=== PATIENT | male | born 1955 | race Caucasian/White ===

== ENCOUNTER 2021-10-11 07:58 | Emergency (ER) | payer BC, MEDICAID ==
[~2021-10-11] VITALS: Ht 185.4 cm; Wt 90.0 kg
[2021-10-11 09:02] LABS: BASOPHILS % (AUTO) 0.6 % (0-1); EOSINOPHILS # (AUTO) 0.2 X10'3 (0-0.9); EOSINOPHILS % (AUTO) 3.4 % (0-6); HEMATOCRIT 43.9 % (42.0-52.0); HEMOGLOBIN 14.7 g/dl (14.0-17.9); LYMPHOCYTES # (AUTO) 1.3 X10'3 (1.1-4.8); LYMPHOCYTES % (AUTO) 19.9 % (21-51); MEAN CORPUSCULAR HEMOGLOBIN 28.9 PG (27.0-31.0); MEAN CORPUSCULAR HGB CONC 33.5 g/dL (33.0-36.5); MEAN CORPUSCULAR VOLUME 86.4 FL (78-98); MEAN PLATELET VOLUME 7.9 FL (7.4-10.4); MONOCYTES # (AUTO) 0.5 X10'3 (0-0.9); NEUTROPHILS # (AUTO) 4.5 X10'3 (1.8-7.7); NEUTROPHILS % (AUTO) 69.1 % (42-75); PLATELET COUNT 154 X10'3 (140-440); RED BLOOD COUNT 5.08 X10'6 (4.70-6.10); RED CELL DISTRIBUTION WIDTH 14.7 % (11.5-14.5); WHITE BLOOD COUNT 6.6 X10'3 (4.5-11.0)
[2021-10-11 09:25] LABS: ALANINE AMINOTRANSFERASE 86 U/L (12-78); ALBUMIN 3.9 G/DL (3.4-5.0); ALKALINE PHOSPHATASE 52 IU/L (46-116); ANION GAP 9 (8-16); ASPARTATE AMINO TRANSFERASE 73 U/L (10-37); BILIRUBIN,TOTAL 0.4 MG/DL (0.1-1.0); BLOOD UREA NITROGEN 16 MG/DL (7-18); BUN/CREATININE RATIO 15.5 (5.4-32.0); CALCIUM 8.5 MG/DL (8.5-10.1); CHLORIDE 104 MMOL/L (99-107); CREATININE 1.03 MG/DL (0.60-1.10); GLUCOSE 106 MG/DL (70-104); POTASSIUM 4.1 MMOL/L (3.5-5.1); SODIUM 140 MMOL/L (135-145); TOTAL CARBON DIOXIDE 27.2 MMOL/L (24-32); TOTAL PROTEIN 7.7 G/DL (6.4-8.2); eGFR 72 ML/MIN
--- NOTE | 2021-10-11 11:59 | NUR ---
Pt stated that he was stung by 3 hornets 3 wks ago. C/O persistant generalized edema. Denies sob.
[2021-10-11 12:36] VITALS: BP 149/95
--- NOTE | 2021-10-11 12:50 | NUR ---
Pt given and understands d/c instructions. IV d/c'd, catherter was intact. Ambulatory with a steady gait.
== END 2021-10-11 12:50 | disposition home or self-care (01) ==
LOC: ER 07:58
DX: R06.00 Dyspnea, unspecified (principal); G47.30 Sleep apnea, unspecified
CPT/HCPCS: 36415; 71045; 80053; 83880; 84484; 85025; 93005; 99285

== ENCOUNTER 2024-07-05 12:46 | Inpatient (IN) | payer BC, MEDICAID ==
[~2024-07-05] VITALS: Ht 177.8 cm; Wt 133.0 kg
--- NOTE | 2024-07-05 12:54 | ELECTROCARDIOGRAPH REPORT ---
[facility] Test Date: 2024-07-05 Test Time: 12:49:26 Pat Name: BRETT GARCIA Department: EMERGENCY ROOM Room: Gender: M Assistant Manager Bilingual: : 1955 Requested By: DEPARTMENT EMERGENCY Order Number: [id number] Reading MD: Measurements Intervals [place] Rate: 101 P: 0 [place]: 198 QRS: -15 QRSD: 82 T: 9 QT: 338 QTc: 439 Interpretive Statements Sinus tachycardia Paired ventricular premature complexes Aberrant conduction of SV complex(es) Borderline left axis deviation Low voltage, precordial leads Probable anteroseptal infarct, old Minimal ST depression Baseline wander in lead(s) III,aVF,V1,V3,V5,V6 Please click the below link to view image of tracing.
[2024-07-05 13:12] LABS: BASOPHILS # (AUTO) 0.1 X10'3 (0-0.2); BASOPHILS % (AUTO) 0.8 % (0-1); EOSINOPHILS # (AUTO) 0.2 X10'3 (0-0.9); EOSINOPHILS % (AUTO) 2.1 % (0-6); HEMATOCRIT 48.7 % (42.0-52.0); HEMOGLOBIN 16.2 g/dl (14.0-17.9); LYMPHOCYTES % (AUTO) 24.4 % (21-51); MEAN CORPUSCULAR HEMOGLOBIN 28.1 PG (27.0-31.0); MEAN CORPUSCULAR HGB CONC 33.4 g/dL (33.0-36.5); MEAN CORPUSCULAR VOLUME 84.1 FL (78-98); MEAN PLATELET VOLUME 8.2 FL (7.4-10.4); MONOCYTES # (AUTO) 0.7 X10'3 (0-0.9); MONOCYTES % (AUTO) 8.5 % (2-12); NEUTROPHILS # (AUTO) 5.3 X10'3 (1.8-7.7); NEUTROPHILS % (AUTO) 64.2 % (42-75); PLATELET COUNT 225 X10'3 (140-440); RED BLOOD COUNT 5.79 X10'6 (4.70-6.10); RED CELL DISTRIBUTION WIDTH 13.1 % (11.5-14.5); WHITE BLOOD COUNT 8.2 X10'3 (4.5-11.0)
--- NOTE | 2024-07-05 13:12 | Physician Documentation ---
History of Present Illness ~ Chief Complaint: Chest Pain Stated Complaint: CHEST PAIN Time Seen by MD: 12:55 HPI 69-year-old male presents to the ED with four days of increasing right-sided abdominal and epigastric pain. He has any exacerbating or alleviating factors. Does report increased shortness of breath however the pain has radiated from midepigastric to the right side and into his right ribs. Denies any increased pain after eating. Reports he does have a history of constipation and has been a taking apple cider vinegar which he believes this caused him to have some diarrhea. He has any nausea. States he may have had a mini stroke secondary to a clogged artery, but isn't sure. Day of Onset: July 05, 2024 Medication Reconciliation Allergies: Coded Allergies: No Known Allergies (Unverified , 07/05/24) Past Medical History Past Medical History: No Pertinent History Past Surgical History: no surgical history Alcohol Use: None Drug Use: none Lives In: Home Review of Systems All Other Systems at this time: Reviewed and Negative ROS The note accurately reflects work and decisions made by me.Salvador Butterfield - REMELT OPERATOR 07/05/24 15:57 Physical Exam Vital Signs: Temperature: 98.0, Source: Temporal, Heart Rate: 90, Respiratory Rate: 18, BP: 156/96, Pulse Oximetry: 97, Weight: 132.980 Physical Exam General: Alert, guarded Respiratory: Lungs clear, no respiratory distress. Cardiovascular: Regular rate and rhythm, no murmurs. Gastrointestinal: Distended tender to the right upper quadrant and midepigastric tenderness Extremities: Normal range of motion, no deformity. Neurologic: Oriented x4. Psychiatric: Normal mood and affect. Skin: Normal color, warm and dry. No edema, no ecchymosis. Progress Results/Orders Results/Orders Orders - SALVADOR BUTTERFIELD NP Chest,Single View (07/05/24 13:00) Monitor (07/05/24 13:00) Saline Lock (07/05/24 13:00) Oxygen (07/05/24 13:00) Hs Troponin I W Calculations (07/05/24 16:00) Ct Abdomen Pelvis (07/05/24 13:50) Ultrasound Of Abdomen (07/05/24 15:31) Page Hospitalist (07/05/24 ) Completed Orders - GREER,SALVADOR H REMELT OPERATOR Chest,Single View (07/05/24 13:00) Cbc/Diff (07/05/24 13:00) PBNP (07/05/24 13:00) CMP (07/05/24 13:00) Hs Troponin I W Calculations (07/05/24 13:00) Hs Troponin I W Calculations (07/05/24 15:00) Ct Abdomen Pelvis (07/05/24 13:50) Ultrasound Of Abdomen (07/05/24 15:31) Morphine 4mg/Ml Inj. (Morphine Inj.) (07/05/24 15:35) Ondansetron Inj. (Zofran 4mg/2ml Vial) (07/05/24 15:35) Normal Saline 1000ml (Sodium Chloride 10 (07/05/24 15:35) Medications Received in ER Medications (Trade) Dose Ordered Sig/Edna Route PRN Reason Start Time Stop Time Status Last Admin Dose Admin (morphine inj.) 4 mg ONCE ONCE IV 07/05/24 15:35 07/05/24 15:36 DC 07/05/24 15:41 4 MG (Zofran 4mg/2ml vial) 4 mg ONCE ONCE IV 07/05/24 15:35 07/05/24 15:36 DC 07/05/24 15:41 4 MG (sodium chloride 1000ml IV soln) 1,000 ml ONCE ONCE IVB 07/05/24 15:35 07/05/24 15:36 DC 07/05/24 15:41 1,000 ML Vital Signs 07/05/24 07/05/24 07/05/24 07/05/24 12:58 13:07 13:16 13:18 Temp 98.0 Pulse 90 77 Resp 18 16 16 B/P (MAP) 156/96 116/90 (99) Pulse Ox 97 97 96 O2 Delivery Room Air* O2 Flow Rate 0 0 FiO2 N/A 07/05/24 07/05/24 07/05/24 07/05/24 13:59 15:30 15:41 15:50 Pulse 83 75 Resp 16 18 18 16 B/P (MAP) 124/88 (100) 135/90 (105) Pulse Ox 98 96 O2 Flow Rate 0 0 Laboratory Tests Test 07/05/24 12:54 07/05/24 14:58 White Blood Count 8.2 Red Blood Count 5.79 Hemoglobin 16.2 Hematocrit 48.7 Mean Corpuscular Volume 84.1 Mean Corpuscular Hemoglobin 28.1 Mean Corpuscular Hemoglobin Concent 33.4 Red Cell Distribution Width 13.1 Platelet Count 225 Mean Platelet Volume 8.2 Neutrophils (%) (Auto) 64.2 Lymphocytes (%) (Auto) 24.4 Monocytes (%) (Auto) 8.5 Eosinophils (%) (Auto) 2.1 Basophils (%) (Auto) 0.8 Neutrophils # (Auto) 5.3 Lymphocytes # (Auto) 2.0 Monocytes # (Auto) 0.7 Eosinophils # (Auto) 0.2 Basophils # (Auto) 0.1 CBC Comment Sodium Level 138 Potassium Level 4.1 Chloride Level 102 Carbon Dioxide Level 23.2 L Anion Gap 13 Blood Urea Nitrogen 15 Creatinine 0.94 Estimated GFR/1.73 m2 80 BUN/Creatinine Ratio 16.0 Glucose Level 113 H Calcium Level 9.3 Total Bilirubin 0.5 Aspartate Amino Transf (AST/SGOT) 44 H Alanine Aminotransferase (ALT/SGPT) 63 Alkaline Phosphatase 67 Troponin I High Sensitivity 8 7 Pro-B-Type Natriuretic Peptide < 30 Total Protein 8.0 Albumin 4.2 Globulin 3.8 Albumin/Globulin Ratio 1.1 Chemistry Comments Troponin I High Sens Percent Delta 12 Troponin I Hi Sens Absolute Change -1 Medical Decision Making Findings 69-year-old male presents with intractable pain which has gone unexplained throughout my diagnostic process. T came back negative however his ultrasound said that he does have a fatty liver which is not surprising based on his body habitus. Ultrasound indicated that his gallbladder was so contracted that they could not fully evaluated if there was a stone that could be causing his symptoms At this stage I can not explain the cause of his symptoms going to request hospitalist evaluation and pain management Differential Dx:Considerations: Include: angina, aortic dissection, chest wall pain, cholelithiasis, CHF, costochondritis, esophageal reflux/spasm, gastritis, herpes zoster, myocardial infarction, pericarditis, pleuritis, pancreatitis, pneumonia, pneumothorax, pulmonary embolus, other Departure Disposition: ADMITTED INPATIENT Impression: Primary Impression: Intractable abdominal pain Condition: Stable Referrals: NO PRIMARY CARE PROVIDER (PCP) Signature Scribe Signature: nate Attestation: The note accurately reflects work and decisions made by me.Salvador Valles NP 07/05/24 16:04 SALVADOR BUTTERFIELD NP July 05, 2024 13:12
[2024-07-05 13:21] LABS: ALANINE AMINOTRANSFERASE 63 U/L (12-78); ALBUMIN 4.2 G/DL (3.4-5.0); ALBUMIN/GLOBULIN RATIO 1.1 (1.1-1.5); ALKALINE PHOSPHATASE 67 IU/L (46-116); ANION GAP 13 (8-16); ASPARTATE AMINO TRANSFERASE 44 U/L (10-37); BILIRUBIN,TOTAL 0.5 MG/DL (0.1-1.0); BLOOD UREA NITROGEN 15 MG/DL (7-18); CALCIUM 9.3 MG/DL (8.5-10.1); CHLORIDE 102 MMOL/L (99-107); CREATININE 0.94 MG/DL (0.60-1.10); GLUCOSE 113 MG/DL (70-104); POTASSIUM 4.1 MMOL/L (3.5-5.1); SODIUM 138 MMOL/L (135-145); TOTAL CARBON DIOXIDE 23.2 MMOL/L (24-32); eCRCL 78 ML/MIN; eGFR 80 ML/MIN
[2024-07-05 13:27] LABS: PRO BRAIN NATRIURETIC PEPTIDE < 30 PG/ML (0-125)
--- NOTE | 2024-07-05 13:38 | RADIOLOGY REPORT ---
CHEST RADIOGRAPH Indication: CP Technique: Single frontal view of the chest was obtained COMPARISON: None FINDINGS: Lines and Tubes: None Lungs: Clear Pleura: No effusion. No pneumothorax. Cardiomediastinal contours: Unremarkable Bones: Unremarkable IMPRESSION: No acute disease.
--- NOTE | 2024-07-05 15:11 | RADIOLOGY REPORT ---
Exam: CT CT ABDOMEN PELVIS History: abd pain Comparison Study: None Technique: Multidetector spiral CT of the abdomen and pelvis was performed from lung bases to pubic symphysis. Imaging was performed without IV contrast. Axial, coronal and sagittal multiplanar reform ats were obtained from the axial data set by the technologist. Radiation dose : Abdomen/Pelvis: CTDIvol 36 mGy, DLP 1944 mGy*cm. Findings: Evaluation of solid organs is limited due to lack of intravenous contrast use. Lung Bases: No acute or significant lung base finding. Normal heart size. No pleural or pericardial effusion. Liver: The liver is normal in size. No focal lesions. Gallbladder and biliary Tree: Contracted Spleen: Unremarkable Pancreas: The pancreas is grossly normal in appearance. Adrenal Glands: Unremarkable Kidneys: Kidneys are grossly normal without calculi or hydronephrosis. Bladder: Grossly unremarkable for degree of distention. Bowel: The stomach is grossly normal in appearance. Small bowel and colon are normal in caliber and d istribution. Normal appendix is visualized in the right lower quadrant without findings of appendicit is. Ascites: Absent Lymphadenopathy: No mesenteric, retroperitoneal or periportal lymphadenopathy. Abdominal wall and Mesentery: Fat containing umbilical hernia. Vasculature: Calcified atherosclerotic disease. Pelvic Organs: Unremarkable Musculoskeletal: Grade 1 spondylolisthesis of L5 on S1. IMPRESSION: 1. No acute abdominal or pelvic findings. Fat containing umbilical hernia. Grade 1 spondylolisthesis of L5 on S1. Radiation optimization: All CT scans at this facility use at least one of these dose optimization alicia hniques: Automated exposure control mA and/or kV adjustment per patient size (includes targeted exams where dose is matched to clinical indication) or iterative reconstruction. HS:Y
[2024-07-05] MEDS: ondansetron/PF 4mg/2ml inj IV ONE (15:41)
[2024-07-05] MEDS: normal saline 1000ML IV soln IVB ONE (15:41)
[2024-07-05] MEDS: morphine 4 MG/ML inj SYRINge IV ONE (15:41)
--- NOTE | 2024-07-05 16:24 | RADIOLOGY REPORT ---
EXAM: US Abdomen Limited, Right Upper Quadrant CLINICAL INDICATION: GALL BLADDER TECHNIQUE: Real-time ultrasound of the right upper quadrant with image documentation. COMPARISON: None FINDINGS: LIVER: Fatty infiltration of the liver. Liver measures up to 21.2 cm. No intrahepatic bile duct d ilation. GALLBLADDER: Gallbladder is contracted. No gallstones. COMMON BILE DUCT: Unremarkable as visualized. No stones. No dilation. Common bile duct measures 0.44 cm in diameter. PANCREAS: Unremarkable as visualized. RIGHT KIDNEY: Unremarkable. No stones. No hydronephrosis. The right kidney measures 11.8 x 5.3 x 6.4 cm. OTHER FINDINGS: . . IMPRESSION: Fatty infiltration of the liver.
[2024-07-05] MEDS ORDERED: magnesium sulf-water 2g/50mL 50 ML IV PRN (16:45)
[2024-07-05] MEDS ORDERED: magnesium sulf-water 4G/100mL 100 ML IV PRN (16:45)
[2024-07-05] MEDS ORDERED: potassium Cl 20 mEq SR tablet PO PRN ×2 (16:45)
[2024-07-05] MEDS ORDERED: acetaminophen 325mg tablet PO PRN ×2 (16:45→22:15)
[2024-07-05] MEDS ORDERED: aminophylline 250mg/10ml inj. IV PRN (16:45)
[2024-07-05] MEDS ORDERED: morphine 2 MG/ML inj. syringe IV PRN ×2 (16:45)
[2024-07-05] MEDS ORDERED: metoprolol tartrate 1mg/ml inj IV PRN (16:45)
[2024-07-05] MEDS ORDERED: regadenoson 0.4mg/5ml syringe IV PRN (16:45)
[2024-07-05] MEDS ORDERED: potassium Cl 40MEQ/1/2NS 520ml 520 ML IV PRN (16:45)
[2024-07-05] MEDS ORDERED: ondansetron/PF 4mg/2ml inj IV PRN (16:45)
[2024-07-05] MEDS ORDERED: nitroGLYCERIN 0.4mg SUBLingual tab SL PRN (16:45)
[2024-07-05] MEDS ORDERED: magnesium Cl slow-release 64mg tablet PO PRN (16:45)
[2024-07-05 17:06] LABS: ETHANOL < 10 MG/DL (<10)
[2024-07-05] MEDS: NORMAL SALINE IV ONE (17:10)
[2024-07-05] MEDS: SINCALIDE IV ONE (17:10)
--- NOTE | 2024-07-05 17:28 | HISTORY AND PHYSICAL-Residence ---
History & Physical Providers to CC Resident Creating Document: CHRIS JOHN RES ~ History of Present Illness Primary Medical Doctor: Dr Susan Soto; [facility] Reason for Admit\Complaint: Abdominal pain History of Present Illness 69-year-old male patient presents to the hospital with complaints of increasing right upper quadrant abdominal pain. He reports that his symptoms began about five days ago, for the 1st three days, the pain was intermittent and then progress towards being continuous. Pain was sudden in onset, stabbing in nature and aggravated with coughing. The cough was also new and begun with a RUQ pain. No pain aggravation on deep breath. Does not associate the pain with diet. No other known aggravating or relieving factors. Allergies: Coded Allergies: No Known Allergies (Unverified , 07/05/24) Past Medical History Past Medical History Hypertension, hypothyroidism Past Surgical History Surgical History Comment Bilateral carotid artery endarterectomy Past Social History Social History Comment Denies any alcohol use, smoking or other illicit drug abuse except for cannabis. Alcohol Use: None Drug Use: None Lives In: Home ROS ROS As stated above in the HPI, otherwise all systems are reviewed and negative. Exam Vitals: Vital Signs Date Time Temp Pulse Resp B/P (MAP) Pulse Ox O2 Delivery O2 Flow Rate FiO2 07/05/24 16:49 71 18 114/83 (93) 99 0 07/05/24 13:07 Room Air* N/A 07/05/24 12:58 98.0 General: General: Awake and Alert, no acute distress. HEENT: Conjunctiva pink, Sclera clear, Mucus Membranes moist. Neck: Increased neck size. Resp: Unlabored. Lungs clear to auscultation bilaterally. Heart: Regular Rate and rhythm, normal S1 and S2 without murmur, rub or gallop. Abdomen: Obese, tenderness over the right upper quadrant. Bowel sounds present. CLINICAL ACCOUNT EXECUTIVE: Conscious, coherent, oriented x4. No cranial nerve deficits. No motor or sensory deficits. Extremities: No cyanosis,clubbing or edema. Skin: Warm and Dry. Rosacea of the face Diagnostic Data Last Recorded Lab Results: 07/05/24 1254 07/05/24 1254 Advance Care Planning Advanced Care plannin - 30 Minutes Additional Plan 1. Acute RUQ pain: Ultrasound abdomen reveals contracted gallbladder, normal CBD diameter Last meal at 6:30 a.m. today morning, hence not post meal contraction. Contraction likely secondary to a passed biliary stone or chronic inflammation Follow HIDA scan in a.m.. Protonix 40 mg daily, NPO now Surgery to evaluate the patient today, appreciate recommendations Pain control with morphine 2. New onset non-expectoration cough Likely secondary to the diaphragmatic stimulation Other causes of new onset cough including troponins, proBNP normal Chest x-ray reviewed- mild patchy opacity in the right basilar lobe which appears has a dome in his new when compared with the prior chest x-rays We will review repeat chest x-ray after a HIDA scan tomorrow 3. Morbid obesity: Possible sleep apnea Hypertension Follow lipid panel and hemoglobin A1c Restart home medications of amlodipine and lisinopril after reconciliation Outpatient sleep study 4. Hypothyroidism: Restart home medications Follows up with his PCP every three months 6. Bilateral carotid endarterectomy Follow lipid panel and A1c Lines: PIV Diet: NPO Code status: Full code GI prophylaxis: Protonix DVT prophylaxis: Heparin Chris John PGY2, Internal medicine resident Date of Service: July 05, 2024 Billing Provider: JOSE ANTONIO WINKLER MD Common Visit Codes: [id number] INP/OBS CARE (HIGH) Secondary Visit Codes: [id number] CARE PLAN 30 MINUTES CHRIS JOHN, RES July 05, 2024 17:28 JOSE ANTONIO WINKLER MD July 05, 2024 17:57
[2024-07-05] MEDS: normal saline 1000ml 1,000 ML IV SCH (17:53)
[2024-07-05 17:54] LABS: CHOL/HDL RATIO 4.7 (0.00-4.99); CHOLESTEROL 192 MG/DL (0-200); HDL CHOLESTEROL 41 MG/DL (35-60); LDL CHOLESTEROL 118 MG/DL (50-100); TRIGLYCERIDES 258 MG/DL (20-135)
[2024-07-05 18:20] LABS: HEMOGLOBIN A1C 5.8 % (4.5-6.2)
[2024-07-05 18:45] VITALS: BP 123/71; PULSE 78; RESP 20; TEMP 98.7; O2SAT 95
[2024-07-05 20:00] VITALS: RESP 20; O2SAT 95
[2024-07-05] MEDS: CefTRIAXone/D5W-Rocephin 1gm 50 ML IV ONE (20:52)
[2024-07-05] MEDS: heparin, porcine 5000 units/ml vial SQ SCH (20:54)
[2024-07-05 22:00] VITALS: BP 102/60; PULSE 80; RESP 20; TEMP 98.2; O2SAT 100
[2024-07-05] MEDS: temazepam 15mg capsule PO PRN (22:33)
[2024-07-05] MEDS: acetaminophen 325mg tablet PO PRN (22:33)
[2024-07-05] MEDS ORDERED: LISI20TA28 PO (23:38)
[2024-07-05] MEDS ORDERED: SYN0.088T PO (23:38)
[2024-07-05] MEDS ORDERED: AMLO5TAB16 PO (23:47)
[2024-07-05] MEDS ORDERED: ATOR-2 PO (23:47)
[2024-07-06] VITALS (8 sets, daily range): BP systolic 101–157; BP diastolic 56–95; PULSE 53–124; RESP 14–22; TEMP 97.1–98.4; O2SAT 92–100
[2024-07-06 05:01] LABS: BASOPHILS % (AUTO) 0.8 % (0-1); EOSINOPHILS # (AUTO) 0.2 X10'3 (0-0.9); EOSINOPHILS % (AUTO) 2.7 % (0-6); HEMATOCRIT 41.7 % (42.0-52.0); HEMOGLOBIN 13.9 g/dl (14.0-17.9); LYMPHOCYTES # (AUTO) 1.7 X10'3 (1.1-4.8); LYMPHOCYTES % (AUTO) 27.1 % (21-51); MEAN CORPUSCULAR HEMOGLOBIN 28.1 PG (27.0-31.0); MEAN CORPUSCULAR HGB CONC 33.3 g/dL (33.0-36.5); MEAN CORPUSCULAR VOLUME 84.5 FL (78-98); MEAN PLATELET VOLUME 7.9 FL (7.4-10.4); MONOCYTES # (AUTO) 0.6 X10'3 (0-0.9); NEUTROPHILS # (AUTO) 3.6 X10'3 (1.8-7.7); NEUTROPHILS % (AUTO) 59.4 % (42-75); PLATELET COUNT 171 X10'3 (140-440); RED BLOOD COUNT 4.94 X10'6 (4.70-6.10); RED CELL DISTRIBUTION WIDTH 13.4 % (11.5-14.5); WHITE BLOOD COUNT 6.1 X10'3 (4.5-11.0)
[2024-07-06 05:13] LABS: ALANINE AMINOTRANSFERASE 149 U/L (12-78); ALBUMIN 3.3 G/DL (3.4-5.0); ALBUMIN/GLOBULIN RATIO 1.2 (1.1-1.5); ALKALINE PHOSPHATASE 77 IU/L (46-116); ANION GAP 5 (8-16); ASPARTATE AMINO TRANSFERASE 99 U/L (10-37); BILIRUBIN,TOTAL 0.5 MG/DL (0.1-1.0); BLOOD UREA NITROGEN 17 MG/DL (7-18); BUN/CREATININE RATIO 16.5 (10.0-20.0); CALCIUM 8.9 MG/DL (8.5-10.1); CHLORIDE 105 MMOL/L (99-107); CREATININE 1.03 MG/DL (0.60-1.10); GLUCOSE 96 MG/DL (70-104); POTASSIUM 4.4 MMOL/L (3.5-5.1); SODIUM 139 MMOL/L (135-145); TOTAL PROTEIN 6.1 G/DL (6.4-8.2); eCRCL 71 ML/MIN; eGFR 72 ML/MIN
[2024-07-06 05:31] LABS: URINE AMPHETAMINE SCREEN NEGATIVE (Neg); URINE BARBITUATE SCREEN NEGATIVE (Neg); URINE BENZODIAZEPINES SCREEN NEGATIVE (Neg); URINE CANNABINOID SCREEN POSITIVE (Neg); URINE COCAINE SCREEN NEGATIVE (Neg); URINE METHADONE SCREEN NEGATIVE (Neg); URINE OPIATE SCREEN POSITIVE (Neg); URINE PHENCYCLIDINE SCREEN NEGATIVE (Neg)
[2024-07-06] MEDS: pantoprazole 40 MG vial IV SCH (11:06)
--- NOTE | 2024-07-06 13:03 | RADIOLOGY REPORT ---
Procedure: NM NM HIDA SCAN Exam Date: 07/06/2024 08:38 AM Clinical History: aBDOMINAL PAIN Comparison Study: None Technique: Following the intravenous administration of 5 mCi of technetium 99m labeled Choletec multi ple planar abdominal planar images were obtained in anterior projection in 1 minute intervals for 60 minutes . Right lateral images were obtained at 60 minutes after injection. Findings: The liver appears grossly normal in size. There is no abnormal persistence of the cardiac or blood po ol activity. Radiotracer can be seen in the small bowel at 24 minutes. Gallbladder is not seen withi n the 1st hour of the exam. Impression: 1. Findings compatible cystic duct obstruction / acute cholecystitis. 2. The CBD is patent.
--- NOTE | 2024-07-06 13:26 | PROGRESS NOTE- Residence ---
Progress Note - Resident Providers to CC Resident Creating Document: CHRIS AGUSTIN RES ~ Central Line/PICC still needed: No Garrett-Non Protocol Garrett Indications Met/Not Met: F/C Indications Not Met Antibiotic Timeout Antibiotic Ordered?: No Subjective Patient Bactrim HIDA scan when we went into same. He reports no acute distress an improvement in the pain when compared to yesterday. Objective Vital Signs Date Time Temp Pulse Resp B/P (MAP) Pulse Ox O2 Delivery O2 Flow Rate FiO2 07/06/24 10:00 97.8 74 16 130/77 (94) 97 Room Air 07/06/24 00:08 0 21 Result Diagram: 07/06/240 07/06/240 General: Awake and Alert, no acute distress. HEENT: Conjunctiva pink, Sclera clear, Mucus Membranes moist. Resp: Unlabored. Lungs clear to auscultation bilaterally. Heart: Regular Rate and rhythm, normal S1 and S2 without murmur, rub or gallop. Abdomen: Soft, mild tenderness in the right upper quadrant. Bowel sounds present Extremities: No cyanosis,clubbing or edema. Skin: Warm and Dry. Assessment Assessment 69-year-old male patient with a past medical history of hypertension, hypothyroidism and hyperlipidemia presents to the hospital with complaints of right upper quadrant pain. Evaluation further revealed acute cholecystitis secondary to cystic duct obstruction. He has being managed by surgical intervention. Plan Plan 1. Acute cholecystitis: Ultrasound abdomen reveals contracted gallbladder, normal CBD diameter Last meal at 6:30 a.m. today morning, hence not post meal contraction. Contraction likely secondary to a passed biliary stone or chronic inflammation Follow HIDA scan in a.m.. Protonix 40 mg daily, NPO now Surgery to evaluate the patient today, appreciate recommendations Pain control with morphine 07/06/24: HIDA scan positive for acute cholecystitis Dr. Dumont reconsulted, will evaluate the patient today NPO until further clearance by surgery 2. New onset non-expectoration cough Likely secondary to the diaphragmatic stimulation Other causes of new onset cough including troponins, proBNP normal Chest x-ray reviewed- mild patchy opacity in the right basilar lobe which appears has a dome in his new when compared with the prior chest x-rays We will review repeat chest x-ray after a HIDA scan tomorrow 07/06/24: Interval improvement in the cough 3. Morbid obesity: Possible sleep apnea Hypertension Dyslipidemia Hypertriglyceridemia and hypercholesterolemia. A1c 5.8 Restarted home medications of amlodipine and lisinopril after reconciliation Outpatient sleep study 4. Hypothyroidism: Levothyroxine 88 mcg Follows up with his PCP every three months 6. Bilateral carotid endarterectomy Likely secondary to morbid obesity, type 2 DM and dyslipidemia Lines: PIV Diet: NPO Code status: Full code GI prophylaxis: Protonix DVT prophylaxis: Heparin Chris Agustin PGY2, Internal medicine resident Date of Service: July 06, 2024 Billing Provider: JOSE ANTONIO WINKLER MD Common Visit Codes: [id number] INP/OBS CARE(HIGH) CHRIS AGUSTIN, MAZIN July 06, 2024 13:26 JOSE ANTONIO WINKLER MD July 06, 2024 17:14
[2024-07-06] MEDS: lisinopril 20mg tablet PO SCH (15:55)
[2024-07-06] MEDS: amLODIPine 5mg tablet PO SCH (15:55)
--- NOTE | 2024-07-06 17:02 | PROGRESS NOTE ---
Progress Note Dictate Providers to CC CC: EMMETT ARDON MD ~ Progress Note: Patient admitted with upper and right upper quadrant abdominal pain of unclear etiology CT scan showed contracted gallbladder Known cholelithiasis from prior history HIDA scan today positive for cystic duct obstruction with nonvisualized gallbladder consistent with the acute calculous cholecystitis Patient non toxic appearing Had dinner last night with no worsening of abdominal pain Currently, case would go very late tonight or early tomorrow morning. Patient is okay being provided a diet and plan for cholecystectomy tomorrow The risks, benefits, and alternatives to a robotic assisted, laparoscopic possible open cholecystectomy were discussed with the patient. Risks include, but are not limited to, bleeding, infection, injury to intra-abdominal structures, injury to the biliary tree, postoperative bile leak and retained common bile duct stone. Patient verbalized understanding. We will plan for surgery tomorrow afternoon following the urologist (two prostatectomy cases). Antibiotic Ordered?: Yes Objective Vitals Vital Signs Date Time Temp Pulse Resp B/P (MAP) Pulse Ox O2 Delivery O2 Flow Rate FiO2 07/06/24 15:55 124 07/06/24 14:49 157/95 (115) 07/06/24 10:00 97.8 16 97 Room Air 07/06/24 00:08 0 21 Lab Results: 07/06/24 0440 07/06/24 0440 EMMETT ARDON MD July 06, 2024 17:02
[2024-07-06] MEDS: CITALOpram 10mg tablet PO SCH (17:29)
--- NOTE | 2024-07-06 19:56 | CARDIOLOGY REPORT ---
APPROVED REPORT EXAM: Comprehensive 2D, Doppler, and color-flow Echocardiogram. Patient Location: [facility] Heart Rate: 70 bpm Rhythm: SINUS Indications CHEST PAIN BILATERAL CAROTID ENDARTERECTOMY French Professor: Stan Leon MD Previous echo: NONE 2D Dimensions RVDd 3.9 cm IVSd 1.0 (0.7-1.1cm) LVDd 5.1 cm PWd 1.2 (0.7-1.1cm) LVOT Diameter 2.15 (1.8-2.4cm) M-Mode Dimensions Left Atrium(MM) 4.78 (2.5-4.0cm) Aortic Root 3.90 (2.2-3.7cm) Aortic Valve AoV Peak Regan. 163.9 cm/s AoV VTI 31.1 cm AO Peak GR. 10.7 mmHg AO Mean GR. 6 mmHg LVOT VTI 25.58 cm LVOT Peak Regan. 122.9 cm/s NICKO(VTI)/BSA 2.99 cm2/m2 NICKO (VTI) 2.99 cm2 Mitral Valve MV E Velocity 89.2 cm/s MV Peak Gr. 3 mmHg MV A Velocity 98.8 cm/s MV PHT 64 ms E/A Ratio 0.9 MVA (PHT) 3.44 cm2 MV VMax91.9 cm/s Tricuspid Valve TR P. Velocity 155 cm/s RAP ESTIMATE 10 mmHg TR Peak Gr. 10 mmHg RVSP 20 mmHg LEFT VENTRICLE Normal LV size and wall thickness. Overall systolic function is normal. LVEF is 65%. RIGHT VENTRICLE RV is grossly measured to be mildly increased in size with normal function. ATRIA Left atrium is moderately dilated. AORTIC VALVE Trileaflet AV appears moderately sclerotic without stenosis or insufficiency. TDS. MITRAL VALVE Mild MV annular calcification without stenosis. Trace regurgitation. TDS. TRICUSPID VALVE TV GROSSLY appears structurally normal with trace regurgitation. TDS PULMONIC VALVE Pulmonic valve is not well visualized. GREAT VESSELS Aortic root is mildly dilated. Ascending aorta appears grossly normal, although not well visu alized. PERICARDIUM Normal pericardium. No effusion. Prominent anterior epicardial fat pad. Other Information Study Quality: Poor, limited imaging windows. Conclusion Normal LV size and wall thickness. Overall systolic function is normal. LVEF is 65%. RV is grossly measured to be mildly increased in size with normal function. Left atrium is moderately dilated. Trileaflet AV appears moderately sclerotic without stenosis or insufficiency. Mild MV annular calcification without stenosis. Trace regurgitation. TV GROSSLY appears structurally normal with trace regurgitation. Aortic root is mildly dilated. Normal pericardium. No effusion. Prominent anterior epicardial fat pad.
[2024-07-07] VITALS (24 sets, daily range): BP systolic 108–169; BP diastolic 57–102; PULSE 71–107; RESP 10–22; TEMP 97.8–98.2; O2SAT 90–97
[2024-07-07 04:53] LABS: BASOPHILS % (AUTO) 0.8 % (0-1); EOSINOPHILS # (AUTO) 0.2 X10'3 (0-0.9); EOSINOPHILS % (AUTO) 3.3 % (0-6); HEMATOCRIT 42.2 % (42.0-52.0); HEMOGLOBIN 14.1 g/dl (14.0-17.9); LYMPHOCYTES # (AUTO) 1.4 X10'3 (1.1-4.8); LYMPHOCYTES % (AUTO) 23.4 % (21-51); MEAN CORPUSCULAR HGB CONC 33.4 g/dL (33.0-36.5); MEAN CORPUSCULAR VOLUME 83.7 FL (78-98); MEAN PLATELET VOLUME 7.9 FL (7.4-10.4); MONOCYTES # (AUTO) 0.5 X10'3 (0-0.9); MONOCYTES % (AUTO) 8.7 % (2-12); NEUTROPHILS # (AUTO) 3.8 X10'3 (1.8-7.7); NEUTROPHILS % (AUTO) 63.8 % (42-75); PLATELET COUNT 186 X10'3 (140-440); RED BLOOD COUNT 5.03 X10'6 (4.70-6.10); RED CELL DISTRIBUTION WIDTH 13.2 % (11.5-14.5); WHITE BLOOD COUNT 5.9 X10'3 (4.5-11.0)
[2024-07-07 05:12] LABS: ALANINE AMINOTRANSFERASE 105 U/L (12-78); ALBUMIN 3.5 G/DL (3.4-5.0); ALBUMIN/GLOBULIN RATIO 1.2 (1.1-1.5); ALKALINE PHOSPHATASE 71 IU/L (46-116); ANION GAP 8 (8-16); ASPARTATE AMINO TRANSFERASE 49 U/L (10-37); BILIRUBIN,TOTAL 0.6 MG/DL (0.1-1.0); BLOOD UREA NITROGEN 14 MG/DL (7-18); BUN/CREATININE RATIO 15.9 (10.0-20.0); CALCIUM 9.1 MG/DL (8.5-10.1); CHLORIDE 103 MMOL/L (99-107); CREATININE 0.88 MG/DL (0.60-1.10); GLUCOSE 105 MG/DL (70-104); POTASSIUM 4.1 MMOL/L (3.5-5.1); SODIUM 139 MMOL/L (135-145); TOTAL CARBON DIOXIDE 27.9 MMOL/L (24-32); TOTAL PROTEIN 6.4 G/DL (6.4-8.2); eCRCL 83 ML/MIN; eGFR 86 ML/MIN
[2024-07-07] MEDS: levoTHYROXINE 88mcg tablet PO SCH (06:59)
[2024-07-07] MEDS: atorvastatin 20mg tablet PO SCH (07:02)
[2024-07-07] MEDS ORDERED: amLODIPine 5mg tablet PO SCH (08:00)
[2024-07-07] MEDS ORDERED: lisinopril 20mg tablet PO SCH (08:00)
--- NOTE | 2024-07-07 10:00 | PROGRESS NOTE- Residence ---
Progress Note - Resident Providers to CC Resident Creating Document: CHRIS AGUSTIN RES ~ Central Line/PICC still needed: No Garrett-Non Protocol Garrett Indications Met/Not Met: F/C Indications Not Met Antibiotic Timeout Antibiotic Ordered?: No Subjective No acute complaints and no acute overnight events. Awaiting surgery. Objective Vital Signs Date Time Temp Pulse Resp B/P (MAP) Pulse Ox O2 Delivery O2 Flow Rate FiO2 07/07/24 08:00 Room Air 07/07/24 07:01 80 07/07/24 06:10 97.9 17 108/57 (74) 95 07/07/24 00:21 0 21 Result Diagram: 07/07/24 0445 07/07/24 0445 General: Awake and Alert, no acute distress. HEENT: Conjunctiva pink, Sclera clear, Mucus Membranes moist. Resp: Unlabored. Lungs clear to auscultation bilaterally. Heart: Regular Rate and rhythm, normal S1 and S2 without murmur, rub or gallop. Abdomen: Soft, mild tenderness in the right upper quadrant. Bowel sounds present Extremities: No cyanosis,clubbing or edema. Skin: Warm and Dry. Assessment Assessment 69-year-old male patient with a past medical history of hypertension, hypothyroidism and hyperlipidemia presents to the hospital with complaints of right upper quadrant pain. Evaluation further revealed acute cholecystitis secondary to cystic duct obstruction. He has being managed by surgical intervention. Plan Plan 1. Acute cholecystitis: Ultrasound abdomen reveals contracted gallbladder, normal CBD diameter Last meal at 6:30 a.m. today morning, hence not post meal contraction. Contraction likely secondary to a passed biliary stone or chronic inflammation Follow HIDA scan in a.m.. Protonix 40 mg daily, NPO now Surgery to evaluate the patient today, appreciate recommendations Pain control with morphine 07/06/24: HIDA scan positive for acute cholecystitis Dr. Dumont reconsulted, will evaluate the patient today NPO until further clearance by surgery 07/07/24: Awaiting cholecystectomy today 2. New onset non-expectoration cough Likely secondary to the diaphragmatic stimulation Other causes of new onset cough including troponins, proBNP normal Chest x-ray reviewed- mild patchy opacity in the right basilar lobe which appears has a dome in his new when compared with the prior chest x-rays We will review repeat chest x-ray after a HIDA scan tomorrow 07/06/24: Interval improvement in the cough 07/07/24: Resolved 3. Morbid obesity: Possible sleep apnea Hypertension Dyslipidemia Hypertriglyceridemia and hypercholesterolemia. A1c 5.8 Restarted home medications of amlodipine and lisinopril after reconciliation Outpatient sleep study 4. Hypothyroidism: Levothyroxine 88 mcg Follows up with his PCP every three months 6. Bilateral carotid endarterectomy Likely secondary to morbid obesity, type 2 DM and dyslipidemia Lines: PIV Diet: NPO Code status: Full code GI prophylaxis: Protonix DVT prophylaxis: Heparin Chris Agustin PGY2, Internal medicine resident Date of Service: July 07, 2024 Billing Provider: JOSE ANTONIO WINKLER MD Common Visit Codes: [id number] INP/OBS CARE(HIGH) CHRIS AGUSTIN, MAZIN July 07, 2024 10:00 JOSE ANTONIO WINKLER MD July 07, 2024 17:18
[2024-07-07] MEDS: INDOCYANINE GREEN 25 MG/10 ML VIAL IV ONE (14:25)
[2024-07-07] MEDS ORDERED: BUPIVAcaine 2.5mg/ml inj 50ml vial (contains preservative) ONE (15:28)
[2024-07-07] MEDS ORDERED: LIDOcaine 1% 30ml preserv. free vial ONE (15:28)
[2024-07-07] MEDS ORDERED: HYDROmorphone/PF 0.2 MG/ML SYRINGE IV PRN (15:50)
[2024-07-07] MEDS ORDERED: labetalol 20mg/4ml (5mg/ml) syringe IV PRN (15:50)
[2024-07-07] MEDS ORDERED: hydrALAZINE 20mg/ml inj. IV PRN (15:50)
[2024-07-07] MEDS ORDERED: ondansetron/PF 4mg/2ml inj IV PRN (15:50)
[2024-07-07] MEDS: ketorolac trometh 30MG/ML vial 30 MG/ML VIAL IV ONE (15:50)
[2024-07-07] MEDS ORDERED: morphine 2 MG/ML inj. syringe IV PRN (15:50)
[2024-07-07] MEDS ORDERED: aminophylline 500mg/20ml vial IV PRN (16:01)
[2024-07-07] MEDS ORDERED: rocuronium 10mg/ml inj IV ONE (16:07)
[2024-07-07] MEDS ORDERED: propofol inj 20 ML IV ONE (16:07)
[2024-07-07] MEDS ORDERED: midazolam 1 mg/ML 2ml injection ONE (16:10)
[2024-07-07] MEDS ORDERED: fentaNYL /PF 50mcg/ml 5ml ampule ONE (16:10)
[2024-07-07] MEDS ORDERED: ceFAZolin 1000mg inj ONE ×3 (16:29)
[2024-07-07] MEDS ORDERED: dexamethasone sod phosphate 4mg/ml inj. ONE (16:35)
[2024-07-07] MEDS ORDERED: sevoflurane 250ml liquid IH ONE (16:44)
[2024-07-07] MEDS ORDERED: glycopyrrolate 0.2mg/ml inj ONE (17:58)
[2024-07-07] MEDS ORDERED: neostigmine methylsulfate 1 MG/ML 10ml vial ONE (17:58)
[2024-07-07] MEDS ORDERED: ondansetron/PF 4mg/2ml inj ONE (17:58)
[2024-07-07] MEDS ORDERED: naloxone 0.4 mg/ml inj IV PRN (18:40)
[2024-07-07] MEDS ORDERED: HYDROcodone/acetaminophen 5mg/325mg tablet PO PRN (18:40)
[2024-07-07] MEDS: morphine 4 MG/ML inj SYRINge IV PRN (18:44)
[2024-07-07] MEDS: acetaminophen 1,000mg/100ml IV 100 ML IV PRN (18:45)
--- NOTE | 2024-07-07 18:49 | OPERATIVE REPORT ---
Operative Report Providers to CC CC: ELTON ARDON MD ~ Date of Procedure: July 07, 2024 Pre-Operative Diagnosis: Acute cholecystitis Post-Operative Diagnosis SAME as PRE-Op Procedure Performed Robotic assisted, laparoscopic subtotal cholecystectomy 3 cm umbilical hernia repair Surgeon: Elton Ardon MD FACS Supervisor Whipped Topping None Anesthesiologist: Soham Carreno Type of Anesthesia: General Findings: Very small, contracted gallbladder with a densely adherent 1st portion of the duodenum and transverse mesocolon Cholelithiasis Patent cystic duct 3 cm umbilical hernia Wound class III Complications None Prosthetics\Implants used: 19 Korean Dylan drain Estimated Blood Loss: Less than 10 cc Specimen Removed: Gallbladder Description of Procedure: Patient was brought to the operating room and identified by the nursing staff and the attending physician. Patient was placed supine and general anesthesia was induced. Preoperative antibiotics were given. The abdomen was prepped and draped in the standard sterile fashion. There was an obvious umbilical hernia. A supraumbilical midline incision was made and deepened down until a fairly large hernia sac was encountered. This was mobilized away from the underside of the umbilical dermis. Hernia sac was mobilized down to the level of the fascia and it was then opened. There was a large amount of preperitoneal fat, but no intra-abdominal contents. The hernia sac and preperitoneal fat were excised at the level of the fascia. The defect was 3 cm in size. Stay sutures were placed and a Du port was anchored to the fascia. Abdomen was insufflated without incident. Laparoscope was inserted and the abdomen was surveyed. Patient had a massive amount of intra-abdominal fat and redundant omentum. Liver was not even visualized due to the liver being completely covered by omentum. Bilateral 8.5 mm robotic ports were placed. A 5 mm accessory port was placed for anticipated fat retraction. The de Nik robotic arm was docked to the patient after he was placed in reverse Trendelenburg position. Instruments were guided into the abdomen under laparoscopic visualization. Omentum was swept off of the liver and exposing the liver edge. There were some adhesions between omentum and the liver edge that were taken down. Gallbladder was not visualized. The 1st portion of the duodenum was densely adherent to the liver as was the superior portion of the transverse mesocolon. Duodenum was slowly mobilized away from the liver edge and the transverse mesocolon was also mobilized away from the, ultimately gallbladder fossa, exposing the fundus of the gallbladder. Incidental rent in the gallbladder fundus led to some spillage of bile. There was some yellow stones within the gallbladder. These were small and suctioned. Contents were suctioned. Further mobilization of the gallbladder from a top- down continued until the gallbladder infundibulum was reached. At the infundibulum, no further dissection was possible due to significant chronic inflammatory changes making the dissection highly concerning for possible common duct injury or vascular injury. The gallbladder was very, very small measuring only about 2-3 cm in length. At the infundibulum it was amputated and the cystic artery cauterized. No bleeding ensued. There was reflux of bile through the gallbladder neck at what was clearly the confluence between gallbladder and cystic duct. The gallbladder mucosa in the small remnant cuff was ablated with electrocautery. Cuff was then sutured closed with a running absorbable barbed suture. Drain was brought in through the lateral port and laid within the gallbladder fossa and up under the left lobe of the liver between the liver and stomach. Instruments were removed and the de Nik robotic arm was undocked from the patient. The drain was sutured in place. Gallbladder was placed in a laparoscopic retrieval bag and removed. This was passed off the field. The 3 cm fascial defect at the level of the umbilicus was closed with interrupted [id number] Ethibond sutures. The knot was buried with a Vicryl suture and the umbilical dermis was reapproximated to the midline fascia with a absorbable suture. Skin was closed at all sites with skin hasmukh. Sterile dressings were applied. Patient was awakened and taken to the postanesthesia care unit in stable condition. Counts repoted as correct: Yes ELTON ARDON MD July 07, 2024 18:49
[2024-07-07] MEDS: ringers solution, lacted 1,000 ML IV SCH (19:01)
[2024-07-07] MEDS: HYDROmorphone/PF 0.2 MG/ML SYRINGE IV PRN (19:11)
[2024-07-07] MEDS: HYDROcodone/acetaminophen 10/325mg tab PO PRN (20:11)
[2024-07-08 05:55] LABS: BASOPHILS % (AUTO) 0.1 % (0-1); EOSINOPHILS % (AUTO) 0 % (0-6); HEMOGLOBIN 14.4 g/dl (14.0-17.9); LYMPHOCYTES # (AUTO) 0.6 X10'3 (1.1-4.8); LYMPHOCYTES % (AUTO) 4.1 % (21-51); MEAN CORPUSCULAR HGB CONC 33.6 g/dL (33.0-36.5); MEAN CORPUSCULAR VOLUME 83.4 FL (78-98); MEAN PLATELET VOLUME 8.5 FL (7.4-10.4); MONOCYTES # (AUTO) 0.6 X10'3 (0-0.9); NEUTROPHILS # (AUTO) 13.5 X10'3 (1.8-7.7); NEUTROPHILS % (AUTO) 91.8 % (42-75); PLATELET COUNT 188 X10'3 (140-440); RED BLOOD COUNT 5.16 X10'6 (4.70-6.10); RED CELL DISTRIBUTION WIDTH 12.8 % (11.5-14.5); WHITE BLOOD COUNT 14.7 X10'3 (4.5-11.0)
[2024-07-08 06:00] VITALS: BP 122/68; PULSE 79; RESP 20; TEMP 98.1; O2SAT 92; O2SAT 93
[2024-07-08 06:14] LABS: ANION GAP 11 (8-16); BLOOD UREA NITROGEN 13 MG/DL (7-18); BUN/CREATININE RATIO 10.3 (10.0-20.0); CHLORIDE 102 MMOL/L (99-107); CREATININE 1.26 MG/DL (0.60-1.10); GLUCOSE 168 MG/DL (70-104); POTASSIUM 4.5 MMOL/L (3.5-5.1); SODIUM 138 MMOL/L (135-145); TOTAL CARBON DIOXIDE 24.6 MMOL/L (24-32)
[2024-07-08 06:15] LABS: ALANINE AMINOTRANSFERASE 668 U/L (12-78); ALBUMIN 3.5 G/DL (3.4-5.0); ALBUMIN/GLOBULIN RATIO 0.9 (1.1-1.5); ALKALINE PHOSPHATASE 109 IU/L (46-116); ASPARTATE AMINO TRANSFERASE 439 U/L (10-37); BILIRUBIN,TOTAL 0.9 MG/DL (0.1-1.0); TOTAL PROTEIN 7.2 G/DL (6.4-8.2); eCRCL 58 ML/MIN; eGFR 57 ML/MIN
[2024-07-08] MEDS ORDERED: oxyCODONE/APAP 5-325mg tablet PO PRN (07:15)
[2024-07-08] MEDS: oxyCODONE/APAP 5-325mg tablet PO PRN (07:49)
[2024-07-08 10:00] VITALS: BP 101/64; PULSE 86; RESP 18; TEMP 97.5; O2SAT 93
--- NOTE | 2024-07-08 10:15 | PROGRESS NOTE ---
Progress Note Dictate Providers to CC ~ Progress Note: Subsequent surgical care on a 69-year-old gentleman who is postoperative day 1. Status post robotic assisted, laparoscopic cholecystectomy for acute cholecystitis Very, very difficult case as the patient had a tiny contracted gallbladder buried beneath dense adhesions between the 1st portion of the duodenum and transverse mesocolon. Subtotal cholecystectomy with a about 90% of the gallbladder resected and stones and sludge cleaned out of the neck. Bile was seen to reflux back through the cystic duct opening Drain was left in place with the cuff was sutured closed Okay to advance diet as tolerated Okay to discharge home tomorrow if bilirubin less than one and transaminase levels trending down Drain can be removed tomorrow if there is no evidence of bile within the drain; otherwise home with the drain and instructions to document daily output Follow up with me one week from Friday for staple removal (possible drain removal if discharged with drain) Dr. Hans Perez taking over for me this afternoon for the next five days Antibiotic Ordered?: Yes Objective Vitals Vital Signs Date Time Temp Pulse Resp B/P (MAP) Pulse Ox O2 Delivery O2 Flow Rate FiO2 07/08/24 07:49 18 07/08/24 07:47 88 07/08/24 06:00 98.1 122/68 (86) 92 Nasal Cannula 4.0 07/07/24 00:21 21 Lab Results: 07/08/24 0500 07/08/24 0500 EMMETT ARDON MD July 08, 2024 10:15
[2024-07-08 11:16] LABS: HBSAG SCREEN Negative (Negative); HEPATITIS C VIRUS ANTIBODY Non Reactive (Non Reactive)
--- NOTE | 2024-07-08 12:29 | PROGRESS NOTE- Residence ---
Progress Note - Resident Providers to CC Resident Creating Document: ESEQUIEL AGUSTIN RES ~ Central Line/PICC still needed: No Garrett-Non Protocol Garrett Indications Met/Not Met: F/C Indications Not Met Antibiotic Timeout Antibiotic Ordered?: No Subjective Status post cholecystectomy and repair of the umbilical hernia yesterday. Surgery was quite complicated. Patient reports 8/0 pain in the right upper quadrant and the right lower quadrant. He had a bowel movement yesterday. Feels bloated but was able to tolerate clear liquid diet today. Request for another sleep aid that are stronger than what he has received last night. Objective Vital Signs Date Time Temp Pulse Resp B/P (MAP) Pulse Ox O2 Delivery O2 Flow Rate FiO2 07/08/24 10:00 97.5 86 18 101/64 (76) 93 Room Air 07/08/24 08:00 4.0 21 Result Diagram: 07/08/24 0500 07/08/24 0500 General: Awake and Alert, no acute distress. HEENT: Conjunctiva pink, Sclera clear, Mucus Membranes moist. Resp: Unlabored. Lungs clear to auscultation bilaterally. Heart: Regular Rate and rhythm, normal S1 and S2 without murmur, rub or gallop. Abdomen: Distended, soft, no guarding or rigidity. Laparoscopic incision sites noted with surrounding bandaging. Repair of the umbilical hernia also done. Pain in the right upper quadrant and the right lower quadrant on palpation. Bowel sounds hyperactive Extremities: No cyanosis,clubbing or edema. Skin: Warm and Dry. Assessment Assessment 69-year-old male patient with a past medical history of hypertension, hypothyroidism and hyperlipidemia presents to the hospital with complaints of right upper quadrant pain. Evaluation further revealed acute cholecystitis secondary to cystic duct obstruction. He has being managed by surgical intervention. Plan Plan 1. Acute cholecystitis: Status post cholecystectomy on 07/07/2024 Transaminitis and reactive leukocytosis secondary to above Ultrasound abdomen reveals contracted gallbladder, normal CBD diameter Last meal at 6:30 a.m. today morning, hence not post meal contraction. Contraction likely secondary to a passed biliary stone or chronic inflammation Follow HIDA scan in a.m.. Protonix 40 mg daily, NPO now Surgery to evaluate the patient today, appreciate recommendations Pain control with morphine 07/06/24: HIDA scan positive for acute cholecystitis Dr. Dumont reconsulted, will evaluate the patient today NPO until further clearance by surgery 07/07/24: Awaiting cholecystectomy today 07/08/2024: Very complex surgery as per Dr. Gardner note, has significantly contracted gallbladder with surrounding adhesions. Subtotal cholecystectomy was performed with a about 90% of the gallbladder resected and stones and sludge cleaned out of the gallbladder and the drain left in place. JESUS drain with serosanguineous discharge As per his recommendations, recommends advancing diet as tolerated as he had bowel movements and leaving the JESUS drain at discharge. To follow up with the in one week from 07/06/24 for staple removal and JESUS drain removal. Education with the patient for management of the JESUS drain- Wound Care will be consulted Leukocytosis with elevated LFTs noted today. Repeat CBC and CMP at 5:00 p.m. today. Close monitoring of bilirubin Stable for discharge with bilirubin less than one and leukocytosis improve. 2. KIN: Not post surgical complication Likely secondary to ATN Recommend increased fluid intake and IVF @ 70cc/hr Closely monitor CMP 3. New onset non-expectoration cough Likely secondary to the diaphragmatic stimulation Other causes of new onset cough including troponins, proBNP normal Chest x-ray reviewed- mild patchy opacity in the right basilar lobe which appears has a dome in his new when compared with the prior chest x-rays We will review repeat chest x-ray after a HIDA scan tomorrow 07/06/24: Interval improvement in the cough 07/07/24: Resolved 4. Morbid obesity: Possible sleep apnea Hypertension Dyslipidemia Hypertriglyceridemia and hypercholesterolemia. A1c 5.8 Restarted home medications of amlodipine and lisinopril after reconciliation Outpatient sleep study 5. Hypothyroidism: Levothyroxine 88 mcg Follows up with his PCP every three months 6. Bilateral carotid endarterectomy Likely secondary to morbid obesity, type 2 DM and dyslipidemia Lines: PIV Diet: NPO Code status: Full code GI prophylaxis: Protonix DVT prophylaxis: Heparin Esequiel Agustin PGY2, Internal medicine resident Date of Service: July 08, 2024 Billing Provider: JOSE ANTONIO WINKLER MD Common Visit Codes: [id number] INP/OBS CARE(HIGH) ESEQUIEL AGUSTIN RES July 08, 2024 12:29 JOSE ANTONIO WINKLER MD July 08, 2024 18:35
[2024-07-08 15:33] VITALS: O2SAT 96
[2024-07-08 17:23] LABS: BASOPHILS % (AUTO) 0.2 % (0-1); EOSINOPHILS % (AUTO) 0.2 % (0-6); HEMATOCRIT 40.8 % (42.0-52.0); HEMOGLOBIN 13.4 g/dl (14.0-17.9); LYMPHOCYTES # (AUTO) 1.2 X10'3 (1.1-4.8); LYMPHOCYTES % (AUTO) 9.7 % (21-51); MEAN CORPUSCULAR HEMOGLOBIN 27.6 PG (27.0-31.0); MEAN CORPUSCULAR HGB CONC 32.8 g/dL (33.0-36.5); MEAN CORPUSCULAR VOLUME 84.1 FL (78-98); MEAN PLATELET VOLUME 8.1 FL (7.4-10.4); MONOCYTES # (AUTO) 0.8 X10'3 (0-0.9); MONOCYTES % (AUTO) 6.6 % (2-12); NEUTROPHILS # (AUTO) 10.4 X10'3 (1.8-7.7); NEUTROPHILS % (AUTO) 83.3 % (42-75); PLATELET COUNT 189 X10'3 (140-440); RED BLOOD COUNT 4.85 X10'6 (4.70-6.10); RED CELL DISTRIBUTION WIDTH 13.3 % (11.5-14.5); WHITE BLOOD COUNT 12.5 X10'3 (4.5-11.0)
[2024-07-08 17:37] LABS: ALANINE AMINOTRANSFERASE 439 U/L (12-78); ALBUMIN 3.5 G/DL (3.4-5.0); ALKALINE PHOSPHATASE 92 IU/L (46-116); ANION GAP 7 (8-16); ASPARTATE AMINO TRANSFERASE 207 U/L (10-37); BILIRUBIN,TOTAL 0.8 MG/DL (0.1-1.0); BLOOD UREA NITROGEN 17 MG/DL (7-18); BUN/CREATININE RATIO 13.9 (10.0-20.0); CALCIUM 8.8 MG/DL (8.5-10.1); CHLORIDE 104 MMOL/L (99-107); CREATININE 1.22 MG/DL (0.60-1.10); GLUCOSE 113 MG/DL (70-104); SODIUM 140 MMOL/L (135-145); TOTAL CARBON DIOXIDE 29.1 MMOL/L (24-32); TOTAL PROTEIN 6.9 G/DL (6.4-8.2); eCRCL 60 ML/MIN; eGFR 59 ML/MIN
[2024-07-08 18:00] VITALS: BP 130/74; PULSE 80; RESP 22; TEMP 97.5; O2SAT 94
[2024-07-08 20:00] VITALS: RESP 22; O2SAT 94
[2024-07-08] MEDS: Melatonin 3mg tablet PO SCH (21:27)
[2024-07-08 22:00] VITALS: BP 117/83; PULSE 76; RESP 20; TEMP 97.7; O2SAT 91
[2024-07-09] MEDS: diphenhydrAMINE 25mg capsule PO ONE (02:54)
[2024-07-09 05:49] LABS: BASOPHILS # (AUTO) 0.1 X10'3 (0-0.2); BASOPHILS % (AUTO) 0.8 % (0-1); EOSINOPHILS # (AUTO) 0.1 X10'3 (0-0.9); HEMATOCRIT 37.8 % (42.0-52.0); HEMOGLOBIN 12.7 g/dl (14.0-17.9); LYMPHOCYTES # (AUTO) 1.4 X10'3 (1.1-4.8); MEAN CORPUSCULAR HEMOGLOBIN 28.3 PG (27.0-31.0); MEAN CORPUSCULAR HGB CONC 33.7 g/dL (33.0-36.5); MEAN CORPUSCULAR VOLUME 83.9 FL (78-98); MEAN PLATELET VOLUME 8.6 FL (7.4-10.4); MONOCYTES # (AUTO) 0.8 X10'3 (0-0.9); MONOCYTES % (AUTO) 7.8 % (2-12); NEUTROPHILS # (AUTO) 8.1 X10'3 (1.8-7.7); NEUTROPHILS % (AUTO) 77.4 % (42-75); PLATELET COUNT 166 X10'3 (140-440); RED CELL DISTRIBUTION WIDTH 13.6 % (11.5-14.5); WHITE BLOOD COUNT 10.5 X10'3 (4.5-11.0)
[2024-07-09 06:00] VITALS: BP 98/52; PULSE 71; RESP 18; TEMP 98; O2SAT 93
[2024-07-09 06:13] LABS: THYROID STIMULATING HORMONE 1.77 ulU/ml (0.34-4.50)
[2024-07-09 08:00] VITALS: RESP 16; O2SAT 91
[2024-07-09 09:14] LABS: ALANINE AMINOTRANSFERASE 330 U/L (12-78); ALBUMIN 3.1 G/DL (3.4-5.0); ALBUMIN/GLOBULIN RATIO 0.9 (1.1-1.5); ALKALINE PHOSPHATASE 74 IU/L (46-116); ANION GAP 10 (8-16); ASPARTATE AMINO TRANSFERASE 131 U/L (10-37); BILIRUBIN,TOTAL 0.6 MG/DL (0.1-1.0); BLOOD UREA NITROGEN 16 MG/DL (7-18); BUN/CREATININE RATIO 16.8 (10.0-20.0); CALCIUM 8.5 MG/DL (8.5-10.1); CHLORIDE 104 MMOL/L (99-107); CREATININE 0.95 MG/DL (0.60-1.10); GLUCOSE 111 MG/DL (70-104); POTASSIUM 4.1 MMOL/L (3.5-5.1); SODIUM 140 MMOL/L (135-145); TOTAL CARBON DIOXIDE 25.6 MMOL/L (24-32); TOTAL PROTEIN 6.4 G/DL (6.4-8.2); eCRCL 77 ML/MIN; eGFR 79 ML/MIN
[2024-07-09 10:00] VITALS: BP 100/76; PULSE 67; RESP 16; TEMP 97.8; O2SAT 91
[2024-07-09 12:40] VITALS: RESP 18
--- NOTE | 2024-07-09 14:11 | PROGRESS NOTE ---
Progress Note ID Providers to CC ~ Progress Note Progress Note: doing well/dc MARIE KENNEDY MD July 09, 2024 14:11
[2024-07-09] MEDS ORDERED: HYDR-3973 PO (18:04)
[2024-07-09] MEDS ORDERED: POLY17PO10 PO (18:07)
--- NOTE | 2024-07-14 18:27 | DISCHARGE SUMMARY-Residence ---
Discharge Summary Providers to CC Resident Creating Document: ESEQUIEL JOHNMAZIN ~ Discharge Summary Admission Diagnosis: Acute cholecystitis Hospital Course DATE OF ADMISSION: 07/05/24 DATE OF DISCHARGE: 07/09/24 Discharge Diagnosis\Comment: Acute cholecystitis Hypertension, JAMES, hypothyroid Operations\Procedures: Laparoscopic cholecystectomy Consultants: DR Dumont Complications: None Condition on DC: Stable for transfer New Medications: Hydrocodone Bit/Acetaminophen (Hydrocodone-Apap 10-325 Tablet) 10mg/325mg Tablet 1 TAB PO TID PRN PRN for moderate or severe pain 4-10 for 7 Days, #20 TAB Polyethylene Glycol 3350* (Miralax*) 1 Packet Packet 1 PACKET PO HS for 10 Days, #10 PACKET For persistent loose stools Continued Medications: Amlodipine Besylate (Amlodipine Besylate) 5 Mg Tablet 5 MG PO DAILY Atorvastatin Calcium (Atorvastatin Calcium) 80 Mg Tablet 1 TAB PO DAILY Levothyroxine Sodium* (Synthroid*) 88 Mcg Tablet 1 TAB PO DAILY for 30 Days, #30 TAB Lisinopril (Lisinopril) 20 Mg Tablet 1 TAB PO DAILY for 30 Days, #30 TAB Discharge Summary: 69-year-old male patient presents to the hospital complaints of increasing right upper quadrant abdominal pain worsening with food and associated nausea and vomiting. An ultrasound abdomen revealed contracted gallbladder and normal CBD diameter. A HIDA scan was performed which revealed the presence of acute cholecystitis. The surgeon was consulted who had taken the patient up for surgery. He had a complex intraoperative findings of small contracted gallbladder with associated surrounding additions. Further intraoperative findings revealed that the patient was able to undergo only subtotal cholecystectomy we will at least 90% of the gallbladder was removed, the gallbladder was very small and contracted with being densely adherent to the 1st portion of the duodenum and transverse mesocolon. A JESUS drain was placed post surgery which was soon removed on the 2nd postop day. Simultaneously, he also performed a repair of a 3 cm umbilical hernia. Post surgery, the patient recovered well. He was able to tolerate regular diet on POD day two. After he had a bowel movement and able to tolerate the diet, he was discharged back home to follow up with his primary care provider and the surgeon. Advised at discharge: Activity as tolerated No lifting more than 15 pounds for 2 weeks Diet as tolerated Remove Band-Aids 48 hours after surgery If hasmukh in place, these will be removed in 10-14 days If Steri-Strips in place, leave in place for 7-10 days May shower 48 hours after surgery Follow-up with Dr. Dumont in 2 weeks. Call for appointment. [phone] Follow all recommendations as per Dr. Dumont. If you tend to have non resolving abdominal pain, nausea or vomiting, fevers or chills, increased drainage through the side of urine, kindly return back to the ER. For further pain medication refill please contact your primary care physician or Dr. Dumont Physical exam at discharge: General: Awake and Alert, no acute distress. HEENT: Conjunctiva pink, Sclera clear, Mucus Membranes moist. Resp: Unlabored. Lungs clear to auscultation bilaterally. Heart: Regular Rate and rhythm, normal S1 and S2 without murmur, rub or gallop. Abdomen: Distended, soft, no guarding or rigidity. Laparoscopic incision sites noted with surrounding bandaging. Repair of the umbilical hernia also done. Pain in the right upper quadrant and the right lower quadrant on palpation. Bowel sounds hyperactive Extremities: No cyanosis,clubbing or edema. Skin: Warm and Dry. Labs at discharge: WBC 10.5, RBC 4.5, hemoglobin 12.7, platelets 166 Sodium 140, potassium 4.1, chloride 104, anion gap 10, BUN 16, creatinine 0.9, glucose 111 Medications at discharge: [place] 10 t.i.d. p.r.n., MiraLax, continue amlodipine, atorvastatin, levothyroxine and lisinopril *Problems/Diagnosis: (1) Intractable abdominal pain Status: Acute Total Time Spent on D/C: Up to 30 Minutes Date of Service: July 14, 2024 Billing Provider: JOSE ANTONIO WINKLER MD Common Visit Codes: [id number]/[id number] DISCH DAY >30min ESEQUIEL JOHN RES July 14, 2024 18:26 JOSE ANTONIO WINKLER MD July 15, 2024 18:21
== END 2024-07-09 17:55 | disposition home health service (06) | DRG 354 ==
LOC: ER 12:47 → ED HOLD 17:12 → ORTHO 4S 18:50
PROVIDERS: ADMIT Internal Medicine; ATTEND Internal Medicine
PROC: CF1C1ZZ Planar Nuclear Medicine Imaging of Hepatobiliary System, All using Technetium 99m (Tc-99m) (ICD-10-PCS; 2024-07-06)
PROC: 0WQF0ZZ Repair Abdominal Wall, Open Approach (ICD-10-PCS; 2024-07-07)
PROC: 8E0W4CZ Robotic Assisted Procedure of Trunk Region, Percutaneous Endoscopic Approach (ICD-10-PCS; 2024-07-07)
PROC: 0FT44ZZ Resection of Gallbladder, Percutaneous Endoscopic Approach (ICD-10-PCS; principal; 2024-07-07 16:16)
DX: K42.9 Umbilical hernia without obstruction or gangrene (principal); K80.01 Calculus of gallbladder with acute cholecystitis with obstruction; Z68.41 Body mass index [BMI] 40.0-44.9, adult; E66.01 Morbid (severe) obesity due to excess calories; E03.9 Hypothyroidism, unspecified; I10 Essential (primary) hypertension; E11.9 Type 2 diabetes mellitus without complications; G47.30 Sleep apnea, unspecified; K21.9 Gastro-esophageal reflux disease without esophagitis; E78.2 Mixed hyperlipidemia; K66.0 Peritoneal adhesions (postprocedural) (postinfection); Z79.899 Other long term (current) drug therapy
CPT/HCPCS: 36415; 71045; 74176; 76700; 78226; 80053; 80061; 80305; 80320; 82948; 83036; 83605; 83880; 84145; 84443; 84484; 85025; 85651; 86803; 87040; 87081; 87340; 87522; 93005; 93306; 96361; 96365; 96372; 96375; 97116; 97161; 97530; 99285; A4215; A4615; A4618; A6250; A6449; A7000; A9537; G0378; J0131; J0690; J0696; J1100; J1171; J1644; J2003; J2250; J2270; J2405; J2470; J2704; J2710; J3010; J3490; J7030; J7120; Q0163